=== PATIENT | female | born 1960 | race Caucasian/White ===

== ENCOUNTER → 2018-04-26 10:22 | Outpatient (CLI) | payer OTHER, SELFPAY ==
[2018-04-26 11:57] LABS: Absolute Neutrophil Count 4.7 X10^3/uL (2.0-7.7); Basophil# 0.04 X10^3/uL; Basophil% 0.6 % (0-1); Eosinophil# 0.18 X10^3/uL; Eosinophils% 2.5 % (0-5); Hematocrit 42.9 % (37-47); Lymphocyte % 22.5 % (19-41); Mean Corp Hgb Conc 32.6 g/gl (32-36); Mean Corpuscular Hgb 29.1 pg (27.0-32.0); Mean Corpuscular Volume 89.2 fL (81-99); Mean Platelet Vol. 8.9 fl (6.2-12.0); Monocyte# 0.59 X10^3/uL; Monocyte% 8.3 % (0-10); Neutrophil # 4.69 X10^3/uL (2.7-7.7); Platelet Count 314 K/mm3 (150-450); RBC Distribution Width CV 13.5 % (11.6-14.6); RBC Distribution Width SD 44.2 fl (35.1-43.9); Red Blood Count 4.81 M/mm3 (4.2-5.4); White Blood Count 7.1 K/mm3 (4.4-11.0)
[2018-04-26 11:59] LABS: POSITIVE COUNT NO; POSITIVE DIFFERENTIAL NO; POSITIVE MORPHOLOGY NO
[2018-04-26 12:21] LABS: AST(SGOT) 20 U/L (15-37); Alanine Aminotransfer ALT/SGPT 31 U/L (13-56); Anion Gap 5 (5-15); BUN 14 mg/dL (7-18); BUN/Creat Ratio 27.8 RATIO (10-20); Calcium,Total 8.8 mg/dL (8.5-10.1); Chloride 107 mmol/L (98-107); Cholesterol 150 mg/dL (200); EST Glomerular Filtration Rate 133 mL/min (>60); Est Glom Filt Rate - Afr Amer 161 mL/min (>60); Glucose 87 mg/dL (74-106); High Density Lipoprotein 40 mg/dL; Sodium Level 140 mmol/L (136-145); Triglycerides 105 mg/dL; Very Low Density Lipoprotein 21 mg/dL (5-40)
[2018-04-26 12:23] LABS: Vitamin D,25 Hydroxy 27.6 ng/mL (29.95-100.01)
[2018-04-26 12:24] LABS: Hemoglobin A1c 5.7 % (4.2-6.3)
== END ==
PROVIDERS: Family Provider Preventive Medicine Occupational Medicine
DX: E55.9 Vitamin D deficiency, unspecified (principal); J30.9 Allergic rhinitis, unspecified; G44.89 Other headache syndrome; Z13.220 Encounter for screening for lipoid disorders
CPT/HCPCS: 36415; 80048; 80061; 82306; 83036; 84450; 84460; 85025

== ENCOUNTER 2024-06-13 18:04 | Emergency (ER) | payer OTHER, SELFPAY ==
[2024-06-13 18:05] VITALS: BP 176/92; PULSE 81; RESP 18; TEMP 36.5; O2SAT 97; BMI 36.5
--- NOTE | 2024-06-13 18:20 | EKG12_ITS ---
Test Reason : CP Blood Pressure : */* mmHG Vent. Rate : 80 BPM Atrial Rate : 80 BPM P-R Int : 148 ms QRS Dur : 78 ms QT Int : 372 ms P-R-T Axes : 6 -6 30 degrees QTcB Int : 429 ms Normal sinus rhythm Normal ECG Confirmed by SHREYAS LOPEZ, HAMILTON ([id number]), field map editor DONAL RYDER ([id number]) on 06/14/2024 6:41:11 AM Referred By: UG Confirmed By: HAMILTON PRITCHETT MD
[2024-06-13 18:31] LABS: Absolute Lymphocyte Count 2.06 X10^3/uL (0.83-4.51); Absolute Neutrophil Count 5.9 X10^3/uL (2.0-7.7); Basophil# 0.08 X10^3/uL; Basophil% 0.9 % (0-1); Eosinophil# 0.33 X10^3/uL; Eosinophils% 3.6 % (0-5); Hematocrit 41.9 % (37-47); Hemoglobin 13.9 g/dL (12.0-15.0); Lymphocyte # 2.06 X10^3/ul (0.83-4.51); Lymphocyte % 22.4 % (19-41); Mean Corp Hgb Conc 33.2 g/dL (32-36); Mean Corpuscular Hgb 29.1 pg (27.0-32.0); Mean Corpuscular Volume 87.7 fL (81-99); Mean Platelet Vol. 8.6 fl (6.2-12.0); Monocyte# 0.76 X10^3/uL; Monocyte% 8.3 % (0-10); NRBC Flagged by Analyzer 0 % (0-5); Neutrophil # 5.91 X10^3/uL (2.7-7.7); Neutrophil % 64.4 % (47-70); Platelet Count 354 K/mm3 (150-450); RBC Distribution Width CV 13.4 % (11.6-14.6); RBC Distribution Width SD 43.6 fl (35.1-43.9); Red Blood Count 4.78 M/mm3 (4.2-5.4); White Blood Count 9.2 K/mm3 (4.4-11.0)
[2024-06-13 18:49] LABS: D-Dimer Quantitative (DVT/PE) 0.32 FEU/ug/m (0.27-0.49)
[2024-06-13 18:51] LABS: Anion Gap 5 (5-15); BUN 10 mg/dL (7-18); BUN/Creat Ratio 17.5 RATIO (10-20); Calcium,Total 9.1 mg/dL (8.5-10.1); Chloride 107 mmol/L (98-107); Creatinine, Serum 0.57 mg/dL (0.55-1.02); EST Glomerular Filtration Rate 112 mL/min (>60); Est Glom Filt Rate - Afr Amer 136 mL/min (>60); Estimated Creatinine Clearance 75.15 ml/min; Glucose 118 mg/dL (74-106); Potassium 3.6 mmol/L (3.5-5.1); Sodium Level 141 mmol/L (136-145); Troponin-I HS < 3 pg/mL (3.0-54.0)
[2024-06-13 19:04] VITALS: BP 175/90; PULSE 74; RESP 15
--- NOTE | 2024-06-13 19:30 | EDS_ITS ---
HPI History of Present Illness Chief Complaint: Chest Pain Detail of Chief Complaint: Chest pain that radiates through to her back Informant: patient Onset/Context/Timing Onset: Days (3 days ago) Activity at onset: sudden Timing: Continuous Quality: Positive for Aching Location: Right Parasternal (Radiates to the left side) and Left Parasternal Current Severity: Mild Maximum Severity: Moderate Worsened By: Nothing Relieved By: Nothing Associated Symptoms: Negative for Nausea, Vomiting, Diaphoresis, Dyspnea, Cough, Fever, Lightheadedness, Acid Reflux or Palpitations Narrative Narrative: Patient is a 64-year-old woman. She is not compliant with her antihypertensive meds. She is on amlodipine 5 mg. She took a dose this morning. Her prior dose was several months ago. She states the pain also went up to her jaw. She had no other associated symptoms or radiation. Her only risk factor is hypertension. There is no family history at a young age. She spoke 40 years ago. She denies history of VTE. Denies leg pain, swelling discoloration. She denies risk factors for VTE. Prior Similar Symptoms: No Recent Illness/Hospitalization: No CVD Risk Factors: Positive for Hypertension; Negative for Diabetes, Hypercholesterolemia, Family History 1' </=55 or Smoking PE Risk Factors: Negative for Recent Travel/Surgery, Recent Immobilization, Prior DVT or PE, Cancer or OCP + Smoking + >/=35 TAD Risk Factors: Positive for Hypertension and - (There is no family history of aortic dissection or aneurysm.); Negative for Marfan's Syndrome or Family History [facility] Medical History Hypertension Glaucoma Fingertip amputation Back pain Diarrhea Migraines Hay fever Hemorrhoids Home Medications ?Medication ?Instructions ?Recorded ?Last Taken ?Type fexofenadine-pseudoephedrine ER 1 tab PO QAM 08/29/17 Unknown History 180 mg-240 mg tablet,ext.release 24 hr (Kena-D 24 Hour) ibuprofen 100 mg tablet (Advil) PO 08/29/17 Unknown History amlodipine 5 mg tablet 5 mg PO DAILY 06/13/24 Unknown History Allergy/AdvReac Type Severity Reaction Status Date / Time Environmental Allergies: Allergy Other Verified 06/13/24 18:05 Uncoded levofloxacin (From [employer]) Allergy Other Verified 06/13/24 18:05 Family History Father Myocardial infarction Hypertension Mother Diabetes Hypertension Social History Smoking Status: Never smoker alcohol intake: never ROS ROS ED Constitutional Constitutional ED: Denies chills, fever(s), subjective, sweats or weight loss Eyes Eyes: Reports none ENT ENT ED: Denies rhinorrhea or sore throat Cardiovascular Cardiovascular: Reports as per HPI; Denies orthopnea or paroxysmal nocturnal dyspnea Respiratory/Chest Respiratory/Chest: Denies cough, dyspnea, dyspnea on exertion, orthopnea or paroxysmal nocturnal dyspnea Gastrointestinal Gastrointestinal: Denies abdominal pain, nausea or vomiting Musculoskeletal Musculoskeletal: Reports back pain; Denies arthralgias, myalgias or neck pain Integumentary Denies rash Neurologic Neurologic: Denies headache(s), paresthesias or weakness Hematologic/Lymphatic Hematologic/Lymphatic: Denies easy bleeding or easy bruising EXAM Physical Exam Const Vital Signs: 06/13/24 18:05 06/13/24 18:26 06/13/24 19:04 Temperature 97.7 F L Temperature Source Oral Pulse Rate 81 74 Respiratory Rate 18 15 Respiratory Effort Normal Short of Breath Blood Pressure 176/92 H 175/90 H Blood Pressure Mean 120 118 Pulse Ox 97 Oxygen Delivery Method Room Air 06/13/24 20:00 Temperature Temperature Source Pulse Rate 72 Respiratory Rate 12 Respiratory Effort Blood Pressure 132/74 H Blood Pressure Mean 93 Pulse Ox Oxygen Delivery Method Positive well nourished and well developed Constitutional Narrative: BMI is 36.5. General Appearance ED: well developed; Negative for pallor HEENT Reports TM's clear and moist mucous membranes normocephalic and atraumatic Tympanic Membrane ED: Yes TM's clear Eyes PERRL and EOMs intact bilaterally General Eye ED: Negative for pale conjunctiva or scleral icterus Neck no lymphadenopathy and no JVD Chest Wall inspection of chest normal and palpation of chest normal Resp clear to auscultation bilaterally Cardio regular rate, regular rhythm, S1 normal heart sound, S2 normal heart sound and no murmurs GI normal to inspection, nondistended, normoactive bowel sounds, soft to palpation, non-tender, non-distended and no masses; Negative for hepatosplenomegaly GI Narrative: There is no palpable pulsatile mass. There is no abdominal bruit. Back/Spine no CVA tenderness Extremity normal to inspection Extremity Narrative: DP and PT pulse are 2+ and symmetric. Radial pulses 2+ and symmetric. Neuro oriented x3 and no sensory deficits noted Sensorium / Orientation: awake and alert Motor Exam: strength 5/5 throughout Psych mental status grossly normal Skin no rashes or lesions noted and no wounds General Skin Exam: Negative for jaundice or pallor Heart Score History: Slightly/Non-Suspicious ECG: Normal Age: >/= 65 years Risk Factors: 1 or 2 Risk Factors Troponin: </= Normal Limit Score: 3 MDM MDM MDM Narrative Medical decision making narrative: Differential is cardiac versus noncardiac. Need to evaluate for cardiac ischemia, will obtain troponin since she has had pain continuous for 72 hours. Need to evaluate for aortic dissection. Will obtain D-dimer to screen. This may represent chest pain of unknown etiology. This also may represent esophagitis, esophageal spasm, reflux. She denies any change with change in position or food. Clinically there is no concern for spontaneous pneumothorax. Most recent blood pressure is 156/86. Patient was informed the cause of her pain is unknown. I informed her that my responsibility to rule out life- threatening concerns. This has been completed. Therefore will discharge to home. Patient's been encouraged to take her blood pressure medicine daily. Lab Data Attestation: I reviewed the patient's lab results. Lab results narrative: CBC is normal. Electrolyte pain is normal. Troponin is less than 3 with 72 hours of pain. D-dimer is normal at 0.32. Labs: Laboratory Results - last 24 hr 06/13/24 18:25 WBC 9.2 RBC 4.78 Hgb 13.9 Hct 41.9 MCV 87.7 MCH 29.1 MCHC 33.2 RDW Std Deviation 43.6 RDW Coeff of Ericka 13.4 Plt Count 354 MPV 8.6 Immature Gran % (Auto) 0.400 Neut % (Auto) 64.4 Lymph % (Auto) 22.4 Citrus % (Auto) 8.3 Eos % (Auto) 3.6 Baso % (Auto) 0.9 Absolute Neuts (auto) 5.9 Absolute Lymphs (auto) 2.06 Nucleated RBC % 0 D-Dimer Quant (PE/DVT) 0.32 Sodium 141 Potassium 3.6 Chloride 107 Carbon Dioxide 28.0 Anion Gap 5 BUN 10 Creatinine 0.57 Estim Creat Clear Calc 75.15 Est GFR (MDRD) Af Amer 136 Est GFR (MDRD) Non-Af 112 BUN/Creatinine Ratio 17.5 Glucose 118 H Calcium 9.1 Troponin I High Sens < 3 L Treatment and Re-Evaluation :: Patient was informed that the cause of her chest pain is uncertain. Life- threatening emergencies have been ruled out. Discharge Plan Triage Chief Complaint: Chest Pain ED Provider: Santino Dillon Dx/Rx/DC Orders Clinical Impression: Anterior chest wall pain, Accelerated essential hypertension, Noncompliance with medication regimen Instructions: ED Chest Pain, Noncardiac, ED Hypertension, Established Prescriptions: No Action ibuprofen [Advil] 100 mg tablet PO fexofenadine-pseudoephedrine [Kena-D 24 Hour] 180-240 mg tablet extended release 24 hr 1 tab PO QAM amlodipine 5 mg tablet 5 mg PO DAILY Primary Care Provider: Kayla العراقي Referrals: Kayla العراقي DO [Primary Care Provider] - 3-5 Days Print Language: Bulgarian Disposition Disposition: Home, Self Care
[2024-06-13 20:00] VITALS: BP 132/74; PULSE 72; RESP 12
[2024-06-13 20:46] VITALS: BP 161/91; PULSE 70; RESP 12; TEMP 36.9; O2SAT 100
== END 2024-06-13 20:47 | disposition home or self-care (01) ==
PROVIDERS: Emergency Provider Emergency Medicine; PCP Family Medicine; Visit Provider Emergency Medicine
DX: R07.89 Other chest pain (principal); I10 Essential (primary) hypertension; Z91.148 Patient's other noncompliance with medication regimen for other reason; Z79.899 Other long term (current) drug therapy
CPT/HCPCS: 80048; 84484; 85025; 85379; 93005; 99284; A4216

== ENCOUNTER 2025-03-30 21:44 | Emergency (ER) | payer OTHER, SELFPAY ==
[2025-03-30] VITALS (12 sets, daily range): BP systolic 128–177; BP diastolic 73–93; PULSE 59–72; RESP 8–19; TEMP 36.9; O2SAT 95–100; BMI 34.6
--- NOTE | 2025-03-30 22:03 | EKG12_ITS ---
Test Reason : CP Blood Pressure : */* mmHG Vent. Rate : 70 BPM Atrial Rate : 70 BPM P-R Int : 144 ms QRS Dur : 76 ms QT Int : 390 ms P-R-T Axes : 4 -8 22 degrees QTcB Int : 421 ms Normal sinus rhythm Normal ECG Confirmed by BROOKE SOTO ([id number]), editor city DONAL RYDER ([id number]) on 04/04/2025 6:26:05 AM Referred By: AR Confirmed By: BROOKE SOTO
--- OUTSIDE RECORDS SUMMARY | 2025-03-30 22:09 | XMS RPT_ITS | CCD ---
Author Organization [facility] Inform ion Partnership [facility] Care Team Providers Care Still Operator Brandy Name Role Phone VINCENZO CORTESNIFER Unavailable Unava ilable KRUSEMARK-MILLIN DO, KAYLA Primary Care Physi katherine KRUSEMARK-MILLIN DO, KAYLA Attending Un available KRUSEMARK-MILLIN DO, KAYLA Primary Care Un available KRUSEMARK-MILLIN DO, KAYLA Attending Un available KRUSEMARK-MILLIN DO, KAYLA Primary Care Un available KRUSEMARK-MILLIN DO, KAYLA Attending Un available KRUSEMARK-MILLIN DO, KAYLA Primary Care Un available Krusemark-Millin, Kayla Primary Care Unava ilable Dillon, Santino Attending Unavailable KRUSEMARK-MILLIN DO, KAYLA Attending Un available KRUSEMARK-MILLIN DO, KAYLA Primary Care Un available Allergies Allergy Classification Reported Allergen(s) Allergy Type Date of Onset Reaction(s) Facility (8 sources) levoFLOXacin; Translations: [LEVOFLOXACIN] Drug Allergy 7 AOF, red eyes [facility] Repository (1 source) Seasonal allergy; Translations: [SEASONAL ALLERGIES] Propensity to adverse reactions (disorder) 7 AOF [facility] Repository (1 source) Environmental Allergies: Uncoded; Translations: [Environmental Allergies: Uncoded] Propensity to adverse reactions (disorder) 4 [facility] Repository Medications Current Medications Medication Drug Class(es) Dates Sig (Normalized) Sig (Original) Gaviscon (5 sources) Start: 01-20-2019 Gaviscon Chewed, pchs, 0 Refill(s) Start Date: 01/20/19 Status: Ordered amLODIPine 5 mg oral tablet (5 sources) Dihydropyridine Calcium Channel Armaan Start: 04-30-2023 End: 04-24-2024 amLODIPine 5 mg oral tablet Dose : 5 mg = 1 tab(s), Oral, qDay, # 90 tab(s), 3 Refill(s), [id number] 162, cm, 04/30/23 10:45:00 EDT, Height, kg, 04/30/23 10:45:00 EDT, Dosing Weight Start Date: 04/30/23 Stop Date: 04/24/24 Status: Ordered Start: 04-22-2022 amLODIPine 5 m g oral tablet See Instructions, TAKE 2 TABLET BY MOUTH EVERY DAY--03-12-23, # 30 tab(s), 11 Refill(s), [id number] 160, cm, 04/22/22 14:08:00 EDT, Height, kg, 04/22/22 14:08:00 EDT, Dosing Weight Start Date: 04/22/22 Status: Ordered Start: 04-22-2022 take 1 tablet by nan th once daily amLODIPine 5 mg oral tablet See Instructions, TAKE 1 TABLET BY MOUTH EVERY DAY, # 30 tab(s), 11 Refill(s), [id number] 160, cm, 04/22/22 14:08:00 EDT, Height, kg, 04/22/22 14:08:00 EDT, Dosing Weight Start Date: 04/22/22 Status: Ordered Start: 03-09-2021 take 1 tablet by nan th once daily amLODIPine 5 mg oral tablet See Instructions, TAKE 1 TABLET BY MOUTH EVERY DAY, # 30 tab(s), 11 Refill(s), Pharmacy: [facility] [id number], 160, cm, 02/11/21 14:44:00 EDT, Height, kg, 02/11/21 14:44:00 EDT, Dosing Weight Start Date: 03/09/21 Status: Ordered Calcium and Magnesium oral tablet (6 sources) Start: 01-20-2019 take 1 tablet by mouth every week Calcium and Magnesium oral tablet Dose = 1 tab(s), Oral, 2X/week, 0 Refill(s) Start Date: 01/20/19 Status: Ordered Centrum Silver oral tablet (3 sources) Start: 01-20-2019 take 1 tablet by mouth every week Centrum Silver oral tablet Dose = 1 tab(s), Oral, 2X/week, # 30 tab(s), 0 Refill(s) Start Date: 01/20/19 Status: Ordered Cranberry preparation (6 sources) Non-Standardized Food Allergenic Extract, Non-Standardized Plant Allergenic Extract Start: 01-20-2019 take 1 capsule by mouth once daily cranberry oral capsule Dose = 1 cap(s), Oral, Daily, 0 Refill(s) Start Date: 01/20/19 Status: Ordered 24 hr fexofenadine hydrochloride 180 mg / pseudoephedrine hydrochloride 240 mg extended release oral tablet (3 sources) alpha-Adrenergic Agonist, Histamine-1 Receptor Antagonist Start: 01-20-2019 take 1 tablet by mouth once daily Kena-D 24 Hour Allergy & Congestion 180 mg-240 mg oral tablet, extended release Dose = 1 tab(s), Oral, Daily, 0 Refill(s) Start Date: 01/20/19 Status: Ordered ibuprofen 200 mg oral tablet (6 sources) Nonsteroidal Anti-inflammatory Drug Start: 01-20-2019 Advil 200 mg oral tablet Dose : 200 mg = 1 tab(s), Oral, q4h, PRN as needed for pain, 0 Refill(s) Start Date: 01/20/19 Status: Ordered latanoprost 0.05 mg/ml ophthalmic solution (3 sources) Prostaglandin Analog Start: 03-12-2023 take 1 dose into the eye(s) once daily at bedtime latanoprost 0.005% ophthalmic solution Dose = 1 drop(s), Eyes, both, qHS, # 2.5 mL, 0 Refill(s) Start Date: 03/12/23 Status: Ordered losartan potassium 50 mg oral tablet (1 source) Angiotensin 2 Receptor Armaan Start: 07-13-2024 End: 07-08-2025 losartan 50 mg oral tablet Dose : 50 mg = 1 tab(s), Oral, qDay, # 90 tab(s), 3 Refill(s), Pharmacy: [facility]/pharmacy #[id number], 160, cm, 07/05/24 13:01:00 EST, Height, kg, 07/05/24 13:01:00 EST, Dosing Weight Start Date: 07/13/24 Stop Date: 07/08/25 Status: Ordered Completed/Discontinued Medications Medication Drug Class(es) Dates Sig (Normalized) Sig (Original) meloxicam 15 mg oral tablet (3 sources) Nonsteroidal Anti-inflammatory Drug Start: 06-13-2019 End: 06-07-2020 meloxicam 15 mg oral tablet Dose : 15 mg = 1 tab(s), Oral, qDay, # 30 tab(s), 11 Refill(s) Start Date: 06/13/19 Stop Date: 06/07/20 Status: Ordered Problems Problem Classification Problem Date Documented Date Episodic/Chronic Blindness and vision defects (6 sources) Visual disturbance 01-13-2022 Episodic Diabetes mellitus without complication (9 sources) Abnormal glucose level; Translations: [Prediabetes] 06-13-2019 Episodic E Codes: Fall (6 sources) Fall 01-08-2021 Essential hypertension (10 sources) Hypertensive disorder 02-11-2021 Chronic Genitourinary symptoms and ill-defined conditions (6 sources) Female stress incontinence 06-13-2019 Chronic Genitourinary symptoms and ill-defined conditions (6 sources) Dysuria 02-11-2021 Episodic Glaucoma (3 sources) Glaucoma suspect 11-10-2022 Chronic Headache; including migraine (6 sources) Headache 10-03-2021 Episodic Neoplasms of unspecified nature or uncertain behavior (5 sources) Neoplasm of skin 06-17-2022 Episodic Nonmalignant breast conditions (6 sources) Pain of breast 12-20-2020 Episodic Nonspecific chest pain (13 sources) Chest pain; Translations: [Chest wall pain] Onset: 07-12-2024 02-11-2021 Episodic Nutritional deficiencies (6 sources) Vitamin D deficiency 06-13-2019 Chronic Other and unspecified benign neoplasm (5 sources) Polyp of colon 04-22-2022 Episodic Other bone disease and musculoskeletal deformities (6 sources) Cervical somatic dysfunction 08-21-2020 Episodic Other bone disease and musculoskeletal deformities (6 sources) Somatic dysfunction of lumbar region 06-14-2020 Episodic Other bone disease and musculoskeletal deformities (6 sources) Somatic dysfunction of pelvic region 06-14-2020 Episodic Other bone disease and musculoskeletal deformities (6 sources) Somatic dysfunction of rib 06-14-2020 Episodic Other bone disease and musculoskeletal deformities (6 sources) Somatic dysfunction of sacral region 06-14-2020 Episodic Other bone disease and musculoskeletal deformities (6 sources) Somatic dysfunction of thoracic region 06-14-2020 Episodic Other bone disease and musculoskeletal deformities (8 sources) Somatic dysfunction of upper limb 12-20-2020 Episodic Other circulatory disease (3 sources) Prehypertension 01-08-2021 Episodic Other circulatory disease (1 source) H/O: heart disorder 06-20-2024 Episodic Other connective tissue disease (6 sources) Muscle pain 01-20-2019 Episodic Other connective tissue disease (2 sources) Pain in right lower limb 06-09-2023 Episodic Other eye disorders (5 sources) 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 Other nervous system disorders (6 sources) Facial paresthesia 10-03-2021 Episodic Other nervous system disorders (3 sources) Shuffling gait 03-12-2023 Episodic Other nervous system disorders (3 sources) Tremor 03-12-2023 Episodic Other non-traumatic joint disorders (6 sources) Hip pain 06-14-2020 Episodic Other non-traumatic joint disorders (6 sources) Joint pain 01-20-2019 Episodic Other nutritional; endocrine; and metabolic disorders (6 sources) Body mass index 30+ - obesity 02-11-2021 Chronic Other nutritional; endocrine; and metabolic disorders (6 sources) Obesity 02-11-2021 Chronic Other skin disorders (4 sources) Skin tag 06-14-2020 Episodic Other upper respiratory disease (6 sources) Allergic rhinitis 02-11-2021 Chronic Other upper respiratory infections (3 sources) Acute sinusitis 10-03-2021 Episodic Otitis media and related conditions (6 sources) Dysfunction of eustachian tube 08-21-2020 Episodic Residual codes; unclassified (6 sources) FH: Rheumatoid arthritis 01-20-2019 Episodic Residual codes; unclassified (6 sources) Insomnia 02-11-2021 Episodic Spondylosis; intervertebral disc disorders; other back problems (14 sources) Low back pain; Translations: [Neck pain] 07-20-2020 Episodic Unclassified (1 source) Unknown / UNK(Unknown) Onset: 05-06-2018 Unclassified (6 sources) Patient encounter status 06-13-2019 Urinary tract infections (4 sources) Urinary tract infectious disease 12-20-2020 Episodic Results Test Name Value Interpretation Reference Range Facility MA MAMMOGRAM SCREENING BILAT ERAL W/TOMOon 07-19-2024 MA MAMMOGRAM SCREENING BILATERAL W/CHARLIE ORIGINAL FROM: [facility] FREDERICK [address] [place] [id number] PROCEDURE FOR: MAHAMED RADHA [address] [place] [address] Home: PID#: [id number] Exam#: [id number] : 1960 Age: 64 TO: KAYLA العراقي [address], [place] [address] Fax: NO FAX EXAMINATION: SCREENING DIGITAL BILATERAL MAMMOGRAM WITH TOMOSYNTHESIS, 07/14/2024 2:32 pm TECHNIQUE: Screening mammography of the bilateral breasts was performed with tomosynthesis. 2D standard and 3D tomosynthesis combination imaging performed through both breasts in the MLO and CC projection. Computer aided detection was utilized in the interpretation of this exam. COMPARISON: 07/03/2022 HISTORY: Breast cancer screening. FINDINGS: BREAST DENSITY: There are scattered areas of fibroglandular density. There is a benign calcification in the left breast. There are no significant masses or calcifications. IMPRESSION: No mammographic evidence of malignancy. Continued screening with annual mammograms is recommended. Tyrer Cuzick risk calculations, generated with the history provided, report this patient's 10 year risk and lifetime risk for developing breast cancer at 1.8% and 3.7%, respectively. Based on this assessment tool, if the patient's calculated lifetime risk is below 20%, then the patient is considered at average risk for developing breast cancer. If the patient's calculated lifetime risk is at or above 20%, then the patient is considered high risk for developing breast cancer and may be a candidate for supplemental breast MRI screening in addition to annual mammographic screening per the [employer]. BIRADS: BI-RADS: 2: Benign RECALL: 1 year screening RECALL TYPE: mammo LETTER SENT: Normal BI-RADS 1 and 2 Interpreted by: Gustavo Hull MD Preliminary Report By: Gustavo Hull MD Electronically signed By Gustavo Hull MD Dictated Date: 07/19/2024 8:07:24 PM Prelim Date: 07/19/2024 8:11:59 PM Sign Date: 07/19/2024 8:11:59 PM Ordering Provider: KAYLA العراقي Cabin Outfitter: CLAUDIA NICHOLAS RT(R)(M)(CT) letter sent: Normal BI-RADS 1 and 2 Mammogram BI-RADS: 2 Benign Normal [facility] 12 Lead EKGon 06-13-2024 12 Lead EKG [facility] [address] [place] [address] 12 Lead EKG 06/13/24 1811 MR#: [id number] Acct: [id number] Name: MAHAMED GARCIA Rep #: [id number] : 1960 64 From: Juan M Simpson MD Attending Dr: Status: DEP ER Ordering Dr: Santino Dillon MD Date: 06/13/24 Location: ED Sex: F C Admitted: Test Reason : CP Blood Pressure : */* mmHG Vent. Rate : 80 BPM Atrial Rate : 80 BPM P-R Int : 148 ms QRS Dur : 78 ms QT Int : 372 ms P-R-T Axes : 6 -6 30 degrees QTcB Int : 429 ms Normal sinus rhythm Normal ECG Confirmed by SHREYAS LOPEZ, JUAN M ([id number]), editor house organ DONAL RYDER ([id number]) on 06/14/2024 6:41:11 AM Referred By: UG Confirmed By: JUAN M SIMPSON MD 06/14/24 0641 Date Juan M Simpson MD CC: Dr. Kayla العراقي; Dr. Santino Dillon MD Signed Normal [facility] Basic Metabolic Profile (BMP )on 06-13-2024 BUN/CRE 17.5 RATIO Normal 10-20 [facility] Comment on above: Order Comment: 'TROP ' Serial specimen #1, #2 or #3: 1 Performed By: #### L 100.0100, L501.4020, L300.8000, L500.2500 #### [facility] Laboratory [address] [place], [address] CA,Total 9.1 mg/dL Normal 8.5-10.1 [facility] Comment on above: Order Comment: 'TROP ' Serial specimen #1, #2 or #3: 1 Performed By: #### L 100.0100, L501.4020, L300.8000, L500.2500 #### [facility] [address] [place], [address] Chloride [Moles/Vol] 107 mmol/L Normal 98-107 [facility] Comment on above: Order Comment: 'TROP ' Serial specimen #1, #2 or #3: 1 Performed By: #### L 100.0100, L501.4020, L300.8000, L500.2500 #### [facility] [address] [place], [address] CO2 [Moles/Vol] 28.0 mmol/L Normal 21.0-32.0 [facility] Comment on above: Order Comment: 'TROP ' Serial specimen #1, #2 or #3: 1 Performed By: #### L 100.0100, L501.4020, L300.8000, L500.2500 #### [facility] [address] [place], [address] Creatinine [Mass/Vol] 0.57 mg/dL Normal 0.55-1.02 [facility] Comment on above: Order Comment: 'TROP ' Serial specimen #1, #2 or #3: 1 Result Comment: The validity of the calculated GFR GFRAA in patients over 70 years has not been determined. Clinical correlation is essential. Performed By: #### L 100.0100, L501.4020, L300.8000, L500.2500 #### [facility] [address] [place], [address] ECRCL 75.15 ml/min Normal [facility] Comment on above: Order Comment: 'TROP ' Serial specimen #1, #2 or #3: 1 Performed By: #### L 100.0100, L501.4020, L300.8000, L500.2500 #### [facility] [address] [place], [address] EST GFR - AA 136 mL/min Normal >60 [facility] Comment on above: Order Comment: 'TROP ' Serial specimen #1, #2 or #3: 1 Result Comment: Afri can [place] GFR Calc Performed By: #### L 100.0100, L501.4020, L300.8000, L500.2500 #### [facility] [address] [place], [address] GAP 5 Normal 5-15 [facility] Comment on above: Order Comment: 'TROP ' Serial specimen #1, #2 or #3: 1 Performed By: #### L 100.0100, L501.4020, L300.8000, L500.2500 #### [facility] [address] [place], [address] GFR/1.73 sq M.predicted among non-blacks MDRD (S/P/Bld) [Vol rate/Area] 112 mL/min/{1.73_m2} Normal >60 [facility] Comment on above: Order Comment: 'TROP ' Serial specimen #1, #2 or #3: 1 Result Comment: Non- GFR Calc Performed By: #### L 100.0100, L501.4020, L300.8000, L500.2500 #### [facility] [address] [place], [address] Glucose [Mass/Vol] 118 mg/dL High 74-106 [facility] Comment on above: Order Comment: 'TROP ' Serial specimen #1, #2 or #3: 1 Result Comment: Fast ing Glucose result from 100 to 125 mg/dL suggests IMPAIRED HOMEOSTASIS per A.D.A. criteria. Performed By: #### L 100.0100, L501.4020, L300.8000, L500.2500 #### [facility] [address] [place], [address] Potassium [Moles/Vol] 3.6 mmol/L Normal 3.5-5.1 [facility] Comment on above: Order Comment: 'TROP ' Serial specimen #1, #2 or #3: 1 Performed By: #### L 100.0100, L501.4020, L300.8000, L500.2500 #### [facility] [address] [place], [address] Sodium [Moles/Vol] 141 mmol/L Normal 136-145 [facility] Comment on above: Order Comment: 'TROP ' Serial specimen #1, #2 or #3: 1 Performed By: #### L 100.0100, L501.4020, L300.8000, L500.2500 #### [facility] [address] [place], [address] Urea nitrogen [Mass/Vol] 10 mg/dL Normal 7-18 [facility] Comment on above: Order Comment: 'TROP ' Serial specimen #1, #2 or #3: 1 Performed By: #### L 100.0100, L501.4020, L300.8000, L500.2500 #### [facility] [address] [place], [address] CBC W/Diff, Automatedon 11- Absolute Lymph 2.06 X10 3/uL Normal 0.83-4.51 [facility] Comment on above: Performed By: #### L 100.0100, L501.4020, L300.8000, L500.2500 #### [facility] [address] [place], [address] Absolute Neut 5.9 X10 3/uL Normal 2.0-7.7 [facility] Comment on above: Performed By: #### L 100.0100, L501.4020, L300.8000, L500.2500 #### [facility] [address] [place], [address] Basophils/100 WBC (Bld) 0.9 % Normal 0-1 [facility] Comment on above: Performed By: #### L 100.0100, L501.4020, L300.8000, L500.2500 #### [facility] [address] [place], [address] Eosinophils/100 WBC (Bld) 3.6 % Normal 0-5 [facility] Comment on above: Performed By: #### L 100.0100, L501.4020, L300.8000, L500.2500 #### [facility] [address] [place], [address] Erythrocyte distribution width (RBC) [Ratio] 13.4 % Normal 11.6-14.6 [facility] Comment on above: Performed By: #### L 100.0100, L501.4020, L300.8000, L500.2500 #### [facility] [address] [place], [address] Hematocrit (Bld) [Volume fraction] 41.9 % Normal 37-47 [facility] Comment on above: Performed By: #### L 100.0100, L501.4020, L300.8000, L500.2500 #### [facility] [address] [place], [address] Hemoglobin (Bld) [Mass/Vol] 13.9 g/dL Normal 12.0-15.0 [facility] Comment on above: Performed By: #### L 100.0100, L501.4020, L300.8000, L500.2500 #### [facility] [address] [place], [address] IG% 0.400 Normal 0.0-0.9 [facility] Comment on above: Result Comment: IG% - Immature Granulocytes (promyelocytes, myelocytes and metamyelocytes) > 1% indicates that a LEFT SHIFT is Present. Performed By: #### L 100.0100, L501.4020, L300.8000, L500.2500 #### [facility] [address] [place], [address] Lymphocytes/100 WBC (Bld) 22.4 % Normal 19-41 [facility] Comment on above: Performed By: #### L 100.0100, L501.4020, L300.8000, L500.2500 #### [facility] [address] [place], [address] MCH (RBC) [Entitic mass] 29.1 pg Normal 27.0-32.0 [facility] Comment on above: Performed By: #### L 100.0100, L501.4020, L300.8000, L500.2500 #### [facility] [address] [place], [address] MCHC (RBC) [Mass/Vol] 33.2 g/dL Normal 32-36 [facility] Comment on above: Performed By: #### L 100.0100, L501.4020, L300.8000, L500.2500 #### [facility] [address] [place], [address] MCV (RBC) [Entitic vol] 87.7 fL Normal 81-99 [facility] Comment on above: Performed By: #### L 100.0100, L501.4020, L300.8000, L500.2500 #### [facility] [address] [place], [address] Monocytes/100 WBC (Bld) 8.3 % Normal 0-10 [facility] Comment on above: Performed By: #### L 100.0100, L501.4020, L300.8000, L500.2500 #### [facility] [address] [place], [address] Neutrophils/100 WBC (Bld) 64.4 % Normal 47-70 [facility] Comment on above: Performed By: #### L 100.0100, L501.4020, L300.8000, L500.2500 #### [facility] [address] [place], [address] Nucleated RBC (Bld) [#/Vol] 0 10*3/uL Normal 0-5 [facility] Comment on above: Performed By: #### L 100.0100, L501.4020, L300.8000, L500.2500 #### [facility] [address] [place], [address] Platelet mean volume (Bld) [Entitic vol] 8.6 fL Normal 6.2-12.0 [facility] Comment on above: Performed By: #### L 100.0100, L501.4020, L300.8000, L500.2500 #### [facility] [address] [place], [address] Platelets (Bld) [#/Vol] 354 10*3/uL Normal 150-450 [facility] Comment on above: Performed By: #### L 100.0100, L501.4020, L300.8000, L500.2500 #### [facility] [address] [place], [address] RBC (Bld) [#/Vol] 4.78 10*6/uL Normal 4.2-5.4 [facility] Comment on above: Performed By: #### L 100.0100, L501.4020, L300.8000, L500.2500 #### [facility] [address] [place], [address] RDW SD 43.6 fl Normal 35.1-43.9 [facility] Comment on above: Performed By: #### L 100.0100, L501.4020, L300.8000, L500.2500 #### [facility] [address] [place], [address] WBC (Bld) [#/Vol] 9.2 10*3/uL Normal 4.4-11.0 [facility] Comment on above: Performed By: #### L 100.0100, L501.4020, L300.8000, L500.2500 #### [facility] [address] [place], [address] D-Dimer Quantitative (DVT/PE )on 06-13-2024 D-DIMER QUANT 0.32 FEU/ug/m Normal 0.27-0.49 [facility] Comment on above: Result Comment: NORM AL D-Dimer level (<0.50) indicates no DVT or PE. Performed By: #### L 100.0100, L501.4020, L300.8000, L500.2500 #### [facility] [address] [place], [address] Emergency Department Summary on 06-13-2024 Emergency Department Summary [facility] Medical Records Department [address] [place] [address] Emergency Department Summary 06/13/24 MR#: [id number] Acct: [id number] Name: MAHAMED GARCIA Rep #: [id number] : 1960 64 From: Santino Dillon MD PCP: Dr. Kayla العراقي Status:REG ER Location: ED HPI History of Present Illness Chief Complaint: Chest Pain Detail of Chief Complaint: Chest pain that radiates through to her back Informant: patient Onset/Context/Timing Onset: Days (3 days ago) Activity at onset: sudden Timing: Continuous Quality: Positive for Aching Location: Right Parasternal (Radiates to the left side) and Left Parasternal Current Severity: Mild Maximum Severity: Moderate Worsened By: Nothing Relieved By: Nothing Associated Symptoms: Negative for Nausea, Vomiting, Diaphoresis, Dyspnea, Cough, Fever, Lightheadedness, Acid Reflux or Palpitations Narrative Narrative: Patient is a 64-year-old woman. She is not compliant with her antihypertensive meds. She is on amlodipine 5 mg. She took a dose this morning. Her prior dose was several months ago. She states the pain also went up to her jaw. She had no other associated symptoms or radiation. Her only risk factor is hypertension. There is no family history at a young age. She spoke 40 years ago. She denies history of VTE. Denies leg pain, swelling discoloration. She denies risk factors for VTE. Prior Similar Symptoms: No Recent Illness/Hospitalization: No CVD Risk Factors: Positive for Hypertension; Negative for Diabetes, Hypercholesterolemia, Family History 1' PE Risk Factors: Negative for Recent Travel/Surgery, Recent Immobilization, Prior DVT or PE, Cancer or OCP + Smoking + >/=35 TAD Risk Factors: Positive for Hypertension and - (There is no family history of aortic dissection or aneurysm.); Negative for Marfan's Syndrome or Family History PFSH PFSH Medical History Hypertension Glaucoma Fingertip amputation Back pain Diarrhea Migraines Hay fever Hemorrhoids Home Medications ???Medication ???Instructions ???Recorded ???Last Taken ???Type fexofenadine-pseudoephed rine ER 1 tab PO QAM 08/29/17 Unknown History 180 mg-240 mg tablet,ext.release 24 hr (Kena-D 24 Hour) ibuprofen 100 mg tablet (Advil) PO 08/29/17 Unknown History amlodipine 5 mg tablet 5 mg PO DAILY 06/13/24 Unknown History Allergy/AdvReac Type Severity Reaction Status Date / Time Environmental Allergies: Allergy Other Verified 06/13/24 18:05 Uncoded levofloxacin (From Levaquin) Allergy Other Verified 06/13/24 18:05 Family History Father Myocardial infarction Hypertension Mother Diabetes Hypertension Social History Smoking Status: Never smoker alcohol intake: never ROS ROS ED Constitutional Constitutional ED: Denies chills, fever(s), subjective, sweats or weight loss Eyes Eyes: Reports none ENT ENT ED: Denies rhinorrhea or sore throat Cardiovascular Cardiovascular: Reports as per HPI; Denies orthopnea or paroxysmal nocturnal dyspnea Respiratory/Chest Respiratory/Chest: Denies cough, dyspnea, dyspnea on exertion, orthopnea or paroxysmal nocturnal dyspnea Gastrointestinal Gastrointestinal: Denies abdominal pain, nausea or vomiting Musculoskeletal Musculoskeletal: Reports back pain; Denies arthralgias, myalgias or neck pain Integumentary Denies rash Neurologic Neurologic: Denies headache(s), paresthesias or weakness Hematologic/Lymphatic Hematologic/Lymphatic: Denies easy bleeding or easy bruising EXAM Physical Exam Const Vital Signs: 06/13/24 18:05 06/13/24 18:26 06/13/24 19:04 Temperature 97.7 F L Temperature Source Oral Pulse Rate 81 74 Respiratory Rate 18 15 Respiratory Effort Normal Short of Breath Blood Pressure 176/92 H 175/90 H Blood Pressure Mean 120 118 Pulse Ox 97 Oxygen Delivery Method Room Air 06/13/24 20:00 Temperature Temperature Source Pulse Rate 72 Respiratory Rate 12 Respiratory Effort Blood Pressure 132/74 H Blood Pressure Mean 93 Pulse Ox Oxygen Delivery Method Positive well nourished and well developed Constitutional Narrative: BMI is 36.5. General Appearance ED: well developed; Negative for pallor HEENT Reports TM's clear and moist mucous membranes normocephalic and atraumatic Tympanic Membrane ED: Yes TM's clear Eyes PERRL and EOMs intact bilaterally General Eye ED: Negative for pale conjunctiva or scleral icterus Neck no lymphadenopathy and no JVD Chest Wall inspection of chest normal and palpation of chest normal Resp clear to auscultation bilaterally Cardio regular rate, regular rhythm, S1 (more content not included)... Normal [facility] L501.4020on 06-13-2024 TROPONIN-I HS < 3 Low 3.0-54.0 [facility] Comment on above: Order Comment: 'TROP ' Serial specimen #1, #2 or #3: 1 Result Comment: Margie jones Note: New Test Units and Gender Specific Reference Ranges. For more information see Policy Stat Procedure [place] High Sensitivity Troponin (TNIH) and attachments. Performed By: #### L 100.0100, L501.4020, L300.8000, L500.2500 #### [facility] [address] [place], [address] CT SINUSon 07-10-2022 CT SINUS ORIGINAL EXAMINATION: CT Sinuses without intravenous contrast TECHNIQUE: Axial noncontrast CT of the head and paranasal sinuses was performed. Coronal and sagittal reconstructions. DICOM images are available. One or more of the following dose reduction techniques were used: automated exposure control, adjustment of the mA and/or kV according to patient size, or use of iterative reconstruction. COMPARISON: None. HISTORY: ORDERING SYSTEM PROVIDED HISTORY: Reason for Exam: CHRONIC SINUSITIS, RIGHT WORSE THAN LEFT WITH PROGRESSION OVER THE LAST 1-2 MONTHS. FINDINGS: Maxillary sinuses: Small left maxillary sinus retention cyst. Sphenoid sinuses: Clear. Ethmoid sinuses: 2 mm osteoma within the mid left ethmoid sinus (axial image 33 series 2). The ethmoid sinuses are otherwise clear. Frontal sinuses: Clear. Frontoethmoidal recesses: Clear. Sphenoethmoidal recesses: Clear. Ostiomeatal units: Clear. Fluid levels: None. Nasal septum: Mild leftward deviation. Nasopharynx: 5 mm midline cyst (axial image 22 series 3) reflecting either a Thornwaldt or mucous retention cyst. Nasal cavity: Unremarkable. Mastoid air cells: Clear. Orbits: Unremarkable. Visualized brain: No acute pathology. Soft tissues: Unremarkable. Bones: Unremarkable. Additional comment: Small bilateral andreia bullosa of the middle nasal turbinates. IMPRESSION: 1. No acute sinusitis. 2. Small left maxillary sinus retention cyst. 3. Subcentimeter cyst of the midline nasopharynx. Interpreted by: Moe Marinelli MD Preliminary Report By: Moe Marinelli MD Electronically signed By Moe Marinelli MD Dictated Date: 07/10/2022 11:33:46 AM Prelim Date: 07/10/2022 11:49:22 AM Sign Date: 07/10/2022 11:49:22 AM Ordering Provider: KAYLA العراقي [facility] ([place] [place] MAMMOGRAM SCREENING BILAT ERAL W/TOMOon 07-03-2022 MA MAMMOGRAM SCREENING BILATERAL W/CHARLIE ORIGINAL FROM: [facility] [address] [place] [address] PROCEDURE FOR: MAHAMED GARCIA [address] [place] [address] Home: PID#: [id number] Exam#: [id number] : 1960 Age: 62 TO: KAYLA العراقي [address], [place] [address] Fax: NO FAX EXAMINATION: SCREENING DIGITAL BILATERAL MAMMOGRAM WITH TOMOSYNTHESIS, 07/03/2022 10:59 am TECHNIQUE: Screening mammography of the bilateral breasts was performed with tomosynthesis. 2D standard and 3D tomosynthesis combination imaging performed through both breasts in the MLO and CC projection. Computer aided detection was utilized in the interpretation of this exam. COMPARISON: 10/11/2008 HISTORY: Breast cancer screening. FINDINGS: BREAST DENSITY: Scattered fibroglandular tissue There are benign appearing densities in both breasts. There are no significant masses or calcifications. IMPRESSION: No mammographic evidence of malignancy. Continued screening with annual mammograms is recommended. BIRADS: MAMMOGRAM BI-RADS: 2: Benign finding RECALL: 1 year screening RECALL TYPE: mammo LETTER SENT: Normal BI-RADS 1 and 2 Interpreted by: Gustavo Hull MD Preliminary Report By: Gustavo Hull MD Electronically signed By Gustavo Hull MD Dictated Date: 07/22/2022 8:16:47 PM Prelim Date: 07/22/2022 8:21:49 PM Sign Date: 07/22/2022 8:21:49 PM Ordering Provider: KAYLA العراقي Cabin Outfitter: CLAUDIA PADILLA RT(R) (M) letter sent: Normal BI-RADS 1 and 2 Mammogram BI-RADS: 2 Benign Normal [facility] ([place]) CT BRAIN WO CONTRASTon 05-06 CT BRAIN WO CONTRAST * * *Final Report* * *DATE OF EXAM: May 06 2018 1:46PM [facility] 0267 - CT BRAIN WO CONTRAST / REASON: sinus and brain * * * * Physician Interpretation * * * * EXAMINATION: CT BRAIN WO CONTRAST, CT STEREO SINUSCLINICAL HISTORY: Right-sided facial numbness and headaches abnormal gait.TECHNIQUE: Serial axial images without IV contrast were obtained from the vertex to the foramen magnum. Additionally, Spiral high resolution unenhanced images were obtained through the paranasal sinuses with sagittal and coronal reconstructions and bone and soft tissue algorithms.MQ: CTBWO_3CT Dose-Length Product (DLP): 795 mGy*cmCT Dose Reduction Employed: No dose reduction techniques were requiredCOMPARISON: None.BRAIN RESULT:Post-operative change: None.Acute change: No evidence of an acute infarct or other acute parenchymal process.Hemorrhage: No evidence of acute intracranial hemorrhage.Mass Lesion / Mass Effect: There is no evidence of an intracranial mass or extraaxial fluid collection. No significant mass effect.Chronic change: None apparent.Parenchyma: There is no significant volume loss. The brain parenchyma is otherwise within normal limits for age.Ventricles: The ventricles are within normal limits of size and configuration for age.SINUS RESULT:Post-Surgical Findings: NoneSinus Chambers: Small mucosal retention cyst in the left maxillary sinus.Nasal Cavities: Visualized nasal cavities are patent. Soft tissue prominence in the area between the longus colli muscles is likely a Thornwaldt cyst.Developmental Anomalies: NoneOstiomeatal Complex: Patent within the constraints of the study.Nasopharynx: Visualized nasopharyngeal soft tissues are symmetric. The nasopharyngeal airway is patent.Temporal Bones: Mastoid air cells and middle ear cavities are grossly clear.Skull Base: No evidence of bony destruction.Facial Soft Tissues: Normal.Orbits: Grossly normal.IMPRESSION:No acute intracranial process. No hemorrhage.Small mucous retention cyst in the left maxillary sinus.Appliance Repair Technician: KAYLA Transcribe Date/Time: May 06 2018 2:43PDictated by : MALISSA THACKER MDThis examination was interpreted and the report reviewed and electronically signed by: LOYDA TAYLOR MD on May 06 2018 3:19PM EST Normal [facility] CT STEREO SINUSon 05-06-2018 Eosinophils Auto #/vol (Bld) * * *Final Report* * *DATE OF EXAM: May 06 2018 1:46PM [facility] 2489 - CT STEREO SINUS / REASON: sinus and brain * * * * Physician Interpretation * * * * EXAMINATION: CT BRAIN WO CONTRAST, CT STEREO SINUSCLINICAL HISTORY: Right-sided facial numbness and headaches abnormal gait.TECHNIQUE: Serial axial images without IV contrast were obtained from the vertex to the foramen magnum. Additionally, Spiral high resolution unenhanced images were obtained through the paranasal sinuses with sagittal and coronal reconstructions and bone and soft tissue algorithms.MQ: CTBWO_3CT Dose-Length Product (DLP): 795 mGy*cmCT Dose Reduction Employed: No dose reduction techniques were requiredCOMPARISON: None.BRAIN RESULT:Post-operative change: None.Acute change: No evidence of an acute infarct or other acute parenchymal process.Hemorrhage: No evidence of acute intracranial hemorrhage.Mass Lesion / Mass Effect: There is no evidence of an intracranial mass or extraaxial fluid collection. No significant mass effect.Chronic change: None apparent.Parenchyma: There is no significant volume loss. The brain parenchyma is otherwise within normal limits for age.Ventricles: The ventricles are within normal limits of size and configuration for age.SINUS RESULT:Post-Surgical Findings: NoneSinus Chambers: Small mucosal retention cyst in the left maxillary sinus.Nasal Cavities: Visualized nasal cavities are patent. Soft tissue prominence in the area between the longus colli muscles is likely a Thornwaldt cyst.Developmental Anomalies: NoneOstiomeatal Complex: Patent within the constraints of the study.Nasopharynx: Visualized nasopharyngeal soft tissues are symmetric. The nasopharyngeal airway is patent.Temporal Bones: Mastoid air cells and middle ear cavities are grossly clear.Skull Base: No evidence of bony destruction.Facial Soft Tissues: Normal.Orbits: Grossly normal.IMPRESSION:No acute intracranial process. No hemorrhage.Small mucous retention cyst in the left maxillary sinus.Appliance Repair Technician: KAYLA Transcribe Date/Time: May 06 2018 2:43PDictated by : MALISSA THACKER MDThichapo examination was interpreted and the report reviewed and electronically signed by: LOYDA TAYLOR MD on May 06 2018 3:19PM EST Normal [facility] PROGRESSon 05-06-2018 Protein mass conc HNO ID: [id number]: Zakia Hazel CtService: (none)Author Type: (none)Type: Progress NotesFiled: 05/06/2018 1:46 PMNote Text: Radiology Service Progress NotePATIENT NAME: Mahamed GarciaMRN: [id number] OF SERVICE: May 06, 2018TIME: 1:41 PMPATIENT IDENTITY VERIFICATION COMPLETED USING TWO (2) METHODS: Patientconfirmed name verbally and Date of .PATIENT GENDER DATA: Female. status: : NoBreastfeeding status: NO.PATIENT RELEVANT IMPLANT DATA REVIEWED: Not ApplicableRADIOLOGY DEPARTMENT: CT; Exam(s) Completed: Brain and SinusPERIPHERAL IV DATA: Not applicableSIGNED BY: Zakia Hazel CtOct2017 1:41 PM Normal [facility] Encounters Encounter Date Encounter Type Care Provider Facility Start: 07-14-2024 End: 07-14-2024 ambulatory KAYLA العراقي DO Facility:[facility] Start: 07-14-2024 End: 07-14-2024 Patient encounter procedure KAYLA العراقي DO [facility] Start: 06-13-2024 End: 06-13-2024 Emergency department patient visit Kayla العراقي Facility:[facility] Start: 12-31-2023 End: 12-31-2023 Patient encounter procedure KAYLA BLACKWELLIN DO [facility] Start: 03-27-2023 End: 03-27-2023 Patient encounter procedure KAYLA العراقي DO [facility] Start: 07-08-2022 End: 07-09-2022 ambulatory KAYLA العراقي DO Facility:[facility] Start: 07-08-2022 End: 07-08-2022 Patient encounter procedure KAYLA العراقي DO [facility] Start: 07-03-2022 End: 07-04-2022 ambulatory KAYLA العراقي DO Facility:[facility] Start: 07-03-2022 End: 07-03-2022 Patient encounter procedure KAYLA BLACKWELLIN DO [facility] Start: 04-11-2022 End: 04-12-2022 ambulatory KAYLA العراقي DO Facility:[facility] Start: 04-11-2022 End: 04-11-2022 Patient encounter procedure KAYLA BLACKWELLIN DO [facility] Start: 05-06-2018 End: 05-06-2018 Patient encounter KAYLA TIMMONS [facility] [place] Procedures Date Procedure Procedure Detail Performing Clinician Start: 08-03-1999 Loop electrosurgical excision procedure KAYLA BLACKWELLIN DO Comment on above: Dr. Piña Start: 08-03-1979 Tip of finger of right hand KAYLA العراقي DO Comment on above: 5th finger s/p traum a--Dr. Veras Immunizations Immunization Date Immunization Notes [facility]2019 influenza virus vacc ine, unspecified formulation KAYLA BLACKWELLIN DO [facility] 06-30-2016 influenza virus vacc ine, unspecified formulation KAYLA MARINOMILLIN DO [facility] 06-12-2016 influenza virus vacc ine, unspecified formulation KAYLA BLACKWELLIN DO [facility] 02-12-2009 tetanus and diphther ia toxoids, adsorbed, preservative free, for adult use (5 Lf of tetanus toxoid and 2 Lf of diphtheria toxoid) [facility] Payers Date Payer Category Payer Private Health Insurance [id number] 2022 Self-pay 1961 Unknown [id number] [id number] 1960 Unknown [id number]. [id number] 1960 Unknown [id number] .16.8 [id number] 1960 Unknown [id number] .16.8 [id number] Unknown [id number] 2.16.8 [id number] Social History Date Type Detail Facility Start: 01-20-2019 Tobacco smoking status Ex-smoker (fi nding) [facility] Sex Assigned At Sex [facility] Clinical Note 12-31-2023 Note Date & Type Note Facility 12-31-2023 Note ORIGINAL EXAMINATION: THREE XRAY VIEWS OF THE LEFT KNEE12/31/2023 10:03 am COMPARISON: Left knee radiograph 04/20/2015 HISTORY: ORDERING SYSTEM PROVIDED HISTORY: Reason for Exam: left knee pain since September, strained after slipping on ice meniscal tear 12 years ago FINDINGS: No acute fracture or dislocation. Bony alignment is within normal limits. Mild tricompartmental degenerative changes with joint space narrowing, and osteophyte formation. Small patellar enthesophytes. Small suprapatellar joint effusion. Vascular phleboliths. Partially visualized intraosseous membrane ossification. The soft tissues are otherwise unremarkable. IMPRESSION: No acute bony abnormality. Mild degenerative changes Small suprapatellar joint effusion. I have personally reviewed the images of this examination and agree with the resident's findings and interpretation. Interpreted by: Magan Arrieta MD Preliminary Report By: Pan Blanco Electronically signed By Magan Arrieta MD Dictated Date: 12/31/2023 10:57:16 AM Prelim Date: 12/31/2023 11:15:43 AM Sign Date: 12/31/2023 11:15:43 AM [facility]-27-2023 Note Date & Type Note Facility 03-27-2023 Note ORIGINAL EXAMINATION: MRI OF THE BRAIN WITHOUT CONTRAST 03/27/2023 10:36 am TECHNIQUE: Multiplanar multisequence MRI of the brain was performed without the administration of intravenous contrast. COMPARISON: None. HISTORY: ORDERING SYSTEM PROVIDED HISTORY: Reason for Exam: headache, tremor, shuffling gait FINDINGS: INTRACRANIAL STRUCTURES/VENTRICLES: There is no acute infarct. No mass effect or midline shift. No evidence of an acute intracranial hemorrhage. The ventricles and sulci are normal in size and configuration. The sellar/suprasellar regions appear unremarkable. Scattered periventricular and subcortical white matter T2/FLAIR hyperintensities which are nonspecific, although could be sequelae of chronic small vessel ischemic disease. The normal signal voids within the major intracranial vessels appear maintained. ORBITS: The visualized portion of the orbits demonstrate no acute abnormality. SINUSES: The visualized paranasal sinuses and mastoid air cells demonstrate no acute abnormality. Nonspecific mucosal thickening in the right sphenoid sinus. BONES/SOFT TISSUES: The bone marrow signal intensity appears normal. The soft tissues demonstrate no acute abnormality. IMPRESSION: No acute findings. Interpreted by: Lopez [place] Preliminary Report By: Lopez [place] Electronically signed By Lopez [place] Dictated Date: 03/27/2023 1:31:13 PM Prelim Date: 03/27/2023 1:34:00 PM Sign Date: 03/27/2023 1:34:00 PM Ordering Provider: KAYLA العراقي [facility] Evaluation + Plan note Radiology Note Date & Type Note Facility Evaluation + Plan note Future Appointments Appointment Date:04/22/2022 02:00:00 PM Scheduled Provider:KAYLA العراقي DO Location:[facility] Appointment Type:PC Wellness Annual Diagnostic Tests PendingHepatitis C Antibody IgG 04/11/22Aspartate Aminotransferase 04/11/22Lipid Profile 04/11/22A1C Hemoglobin 04/11/22ALT / SGPT 04/11/22Basic Metabolic Panel 04/11/22Complete Blood Count 04/11/22 Future Scheduled TestsCT Sinus 08/22/21 [facility] Evaluation + Plan note LaboratoryRadiology Note Date & Type Note Facility Evaluation + Plan note Future Appointments Appointment Date:07/08/2022 11:00:00 AM Scheduled Provider: Location:[facility] Appointment Type:CT Sinus Appointment Date:04/30/2023 10:40:00 AM Scheduled Provider:KAYLA العراقي DO Location:[facility] Appointment Type:PC Wellness Annual Future Scheduled [id number] Hemoglobin 04/22/23Complete Blood Count 04/22/23Lipid Profile 04/22/23Vitamin D Level 04/22/23Complete Metabolic Panel 04/22/23CT Sinus 07/08/22 [facility] Evaluation + Plan note Laboratory Note Date & Type Note Facility Evaluation + Plan note Future Appointments Appointment Date:04/30/2023 10:40:00 AM Scheduled Provider:KAYLA العراقي DO Location:[facility] Appointment Type:PC Wellness Annual Future Scheduled [id number] Hemoglobin 04/22/23Complete Blood Count 04/22/23Lipid Profile 04/22/23Vitamin D Level 04/22/23Complete Metabolic Panel 04/22/23 [facility] Evaluation + Plan note LaboratoryRadiology Note Date & Type Note Facility Evaluation + Plan note Future Appointments Appointment Date:05/05/2024 10:40:00 AM Scheduled Provider:KAYLA العراقي DO Location: [facility] Appointment Type:PC Wellness Annual w/Labs Future Scheduled [id number] Hemoglobin 04/22/23Complete Blood Count 04/22/23Lipid Profile 04/22/23Vitamin D Level 04/22/23Complete Metabolic Panel 04/22/23MA Mammo Screening Bilateral w/ Charlie 04/30/23 [facility] Evaluation + Plan note Laboratory Note Date & Type Note Facility Evaluation + Plan note Future Appointments Appointment Date:08/22/2024 09:40:00 AM Scheduled Provider:KAYLA العراقي DO Location:[facility] Appointment Type:PC OV Follow Up Future Scheduled [id number] Hemoglobin 04/21/25Complete Blood Count 04/21/25Lipid Profile 04/21/25Vitamin D Level 04/28/24Complete Metabolic Panel 04/21/25 [facility] Hospital course Narrative Note Date & Type Note Facility Hospital course Narrative No data available for this section [facility] Hospital Discharge instructions Note Date & Type Note Facility Hospital Discharge instructions No data available for this section [facility] Progress note Note Date & Type Note Facility Progress note No data available for this section [facility] Summary Purpose Family History No Family History Records FoundNo Family History Records Found No data available for this section No data available for this section No Family History Records Found No data available for this section No Family History Records Found Advance Directives No Advanced Directives Records FoundNo Advanced Directives Records FoundNo Advanced Directives Records FoundNo Advanced Directives Records Found Additional Source Comments INFORMATION SOURCE (unrecogn ized section and content) DATE CREATED AUTHOR 06/03/2018 [facility] DATE CREATED AUTHOR AUTHOR'S ORGANIZ ATION 01/09/2023 [facility] ([place]) DATE CREATED AUTHOR AUTHOR'S ORGANIZ ATION 07/15/2024 [facility] DATE CREATED AUTHOR AUTHOR'S ORGANIZ ATION 07/24/2024 [facility] Care Team (unrecognized sect ion and content) Care Team Personnel Name: KAYLA العراقي DO Position: P4 Physician - Primary Care Member Role: Primary Care Physician Address: Address: [address] [place] [phone] [place] Care Team Related Persons Name: MARLON GARCIA Address: Home [address] [place] [phone] Care Team Personnel Name: KAYLA العراقي DO Position: P4 Physician - Primary Care Member Role: Primary Care Physician Address: Address: [address] [place] [address]- Care Team Related Persons Name: MARLON GARCIA Address: Home [address] [place] [phone] [place] Care Team Personnel Name: KAYLA العراقي DO Position: P4 Physician - Primary Care Member Role: Primary Care Physician Address: Address: [address] [place] [address]- Care Team Related Persons Name: MARLON GARCIA Address: Home [address] [place] [phone] Patient Care team informatio n (unrecognized section and content) Care Team Personnel Name: KAYLA العراقي DO Position: P4 Physician - Primary Care Member Role: Primary Care Physician Address: Address: [address] [place] [phone]- [place] Care Team Related Persons Name: MARLON GARCIA Address: Home [address] [place] [phone] [place] Care Team Personnel Name: KAYLA العراقي DO Position: P4 Physician - Primary Care Member Role: Primary Care Physician Address: Address: [address] [place] [phone]- [place] Name: SHANIQUE DEGROOT MD Member Role: Rn Triage Address: Address: [address] [place] [phone] Care Team Related Persons Name: MARLON GARCIA Address: Home [address] [place] [phone] Care Team Personnel Name: JOSI KAYLA Position: P4 Physician - Primary Care Member Role: Primary Care Physician Address: Address: [address] [place], [place] [phone] Name: SHANIQUE DEGROOT MD Member Role: Rn Triage Address: Address: [address] [place] [phone] [place] Care Team Related Persons Name: MARLON GARCIA Address: Home [address] [place] [phone] FOR RECORDS PERTAINING TO PATIENTS WHO ARE OR HAVE BEEN ENROLLED IN A CHEMICAL DEPENDENCY/SUBSTANCEABUSE PROGRAM, SOME INFORMATION MAY BE OMITTED. This clinical summary was aggregated from multiple sources. Caution should be exercised in using it in the provision of clinical care. This summary normalizes information from multiple sources, and as a consequence, information in this document may materially change the coding, format and clinical context of patient data. In addition, data may be omitted in some cases. CLINICAL DECISIONS SHOULD BE BASED ON THE PRIMARY CLINICAL RECORDS. [facility] [email or web address] provides no warranty or guarantee of the accuracy or completeness of information in this document.
[2025-03-30 22:15] LABS: Hematocrit 40.9 % (37-47); Hemoglobin 13.7 g/dL (12.0-15.0); Immature Granulocytes Count 0.030 X10^3/uL (0.0-0.0); Mean Corp Hgb Conc 33.5 g/dL (32-36); Mean Corpuscular Volume 89.5 fL (81-99); Mean Platelet Vol. 8.7 fl (6.2-12.0); NRBC Flagged by Analyzer 0 % (0-5); Platelet Count 357 K/mm3 (150-450); RBC Distribution Width CV 13.2 % (11.6-14.6); RBC Distribution Width SD 43.5 fl (35.1-43.9); Red Blood Count 4.57 M/mm3 (4.2-5.4); White Blood Count 9.8 K/mm3 (4.4-11.0)
--- NOTE | 2025-03-30 22:15 | EDS_ITS ---
HPI History of Present Illness Chief Complaint: Chest Pain Narrative Narrative: 64-year-old female past medical history of hypertension presents with left-sided chest pain and squeezing that began at around 8 PM, approximately 2 hours ago. She states she had just gotten home. She felt some tightness and squeezing in her chest that became relatively severe. She denies any nausea or vomiting, no shortness of breath or diaphoresis but does state that when she leans forward sometimes it gets worse. May radiate slightly upward in her chest. She denies any leg swelling. No DVT or PE risk factors. No tearing sensation of the back. There may be a slight pleuritic component to it. It is improving, however. [facility] Medical History Hypertension Glaucoma Fingertip amputation Back pain Diarrhea Migraines Hay fever Hemorrhoids Home Medications ?Medication ?Instructions ?Recorded ?Last Taken ?Type fexofenadine-pseudoephedrine ER 1 tab PO QAM 08/29/17 Unknown History 180 mg-240 mg tablet,ext.release 24 hr (Kena-D 24 Hour) ibuprofen 100 mg tablet (Advil) PO 08/29/17 Unknown Hi story amlodipine 5 mg tablet 5 mg PO DAILY 06/13/24 Unkno wn History latanoprost 0.005 % eye drops 1 drp ophthalmic (eye) D AILY 03/30/25 Unknown History losartan 50 mg tablet 50 mg PO DAILY 03/30/25 Unkn own History Allergy/AdvReac Type Severity Reaction Status Date / Time Environmental Allergies: Allergy Other Verified 03/30/25 21:48 Uncoded levofloxacin (From Levaquin) Allergy Other Verified 03/30/25 21:48 Family History Father Myocardial infarction Hypertension Mother Diabetes Hypertension Social History Smoking Status: Never smoker alcohol intake: never ROS ROS ED ROS Narrative Review of systems positive for left-sided chest pain. No fevers or chills, no cough, no nausea or vomiting, no diaphoresis or shortness of breath. Slight pleuritic pain and also worsened with leaning forward, however overall improving. No leg swelling. No exertional component. EXAM Physical Exam Narrative Exam Narrative: Afebrile. Vital signs noted. Nontoxic-appearing. Cardiovascular examination feels a regular rate and rhythm. Lungs are clear to auscultation bilaterally. Abdomen is soft and nontender with positive bowel sounds. No guarding or rebound. Neurological examination is nonfocal, nonlateralizing. No appreciable pitting pedal edema bilaterally. Const Vital Signs: 03/30/25 21:45 03/30/25 21:52 03/30/25 21:52 Temperature 98.4 F Temperature Source Temporal Pulse Rate 72 Respiratory Rate 16 Respiratory Effort Normal Respiratory Pattern Normal Blood Pressure 177/91 H 157/93 H Blood Pressure Mean 119 114 Pulse Ox 99 Oxygen Delivery Method Room Air 03/30/25 21:53 03/30/25 21:53 03/30/25 22:00 Temperature Temperature Source Pulse Rate 69 70 Respiratory Rate 19 H 12 Respiratory Effort Respiratory Pattern Blood Pressure 157/93 H 166/89 H Blood Pressure Mean 114 112 Pulse Ox 99 100 Oxygen Delivery Method Room Air 03/30/25 22:00 03/30/25 22:07 03/30/25 22:15 Temperature Temperature Source Pulse Rate 66 68 Respiratory Rate 11 L 8 L Respiratory Effort Respiratory Pattern Blood Pressure 166/89 H Blood Pressure Mean 112 Pulse Ox 99 98 Oxygen Delivery Method Room Air 03/30/25 22:19 03/30/25 22:30 03/30/25 22:45 Temperature Temperature Source Pulse Rate 70 63 68 Respiratory Rate 14 18 Respiratory Effort Respiratory Pattern Blood Pressure 166/89 H 137/83 H Blood Pressure Mean 101 Pulse Ox 95 98 Oxygen Delivery Method 03/30/25 23:00 03/30/25 23:00 03/30/25 23:15 Temperature Temperature Source Pulse Rate 66 60 64 Respiratory Rate 14 13 14 Respiratory Effort Respiratory Pattern Blood Pressure 146/73 H 146/73 H Blood Pressure Mean 97 93 Pulse Ox 98 97 99 Oxygen Delivery Method Room Air 03/30/25 23:30 03/30/25 23:45 03/31/25 00:00 Temperature Temperature Source Pulse Rate 59 L 65 70 Respiratory Rate 14 13 19 H Respiratory Effort Respiratory Pattern Blood Pressure 128/77 H 147/80 H Blood Pressure Mean 93 99 Pulse Ox 95 96 97 Oxygen Delivery Method MDM MDM MDM Narrative Medical decision making narrative: The differential diagnosis includes but not limited to acute coronary syndrome versus pulmonary embolism versus Prinzmetal angina versus pneumothorax versus pneumonia. History and physical does not support the latter 2 diagnoses. I have low clinical suspicion for aortic dissection as she is not having any tearing back pain and she has equal radial pulses. EKG was obtained and interpreted by myself independently as normal sinus rhythm at 70 bpm without ectopy or acute ST changes. No STEMI. I reviewed her laboratory work and she has normal white count of 9.8 with hemoglobin 13.7, hematocrit 40.9, platelet count normal at 357. D-dimer is negative at 0.39. I do not feel she requires CTA. She had a negative D-dimer when compared to prior labs as well. BMP is grossly unremarkable except for creatinine low at 0.63. Initial high-sensitivity troponin is less than 6. Chest x-ray 2 views interpreted by myself independently shows no acute process. I reviewed the radiology report which confirms my independent interpretation. Upon repeat examination, she states her pain is improved. Her blood pressure has come down. Additionally, she states that the pain was radiating under her rib. She may have had more of a pinched nerve as she states it was worse when she leaned forward and directly under her left breast. She will be given Toradol for analgesia here. As long as her repeat troponin at 2 hours is negative with an acceptable delta, I do feel that she can be discharged to follow-up. She will take her blood pressure more often and follow-up with her primary care provider. I did review return instructions with her as well. Patient will be signed out to the overnight physician to check the second troponin, and make final disposition on the patient. Discharge anticipated. She is in stable condition currently. History & Record Review Discussion w/independent historian: Patient Additional record(s) reviewed:: Prior labs (Prior negative D-dimer) Lab Data Attestation: I reviewed the patient's lab results. Labs: Laboratory Results - last 24 hr 03/30/25 21:56 WBC 9.8 RBC 4.57 Hgb 13.7 Hct 40.9 MCV 89.5 MCH 30.0 MCHC 33.5 RDW Std Deviation 43.5 RDW Coeff of Ericka 13.2 Plt Count 357 MPV 8.7 Immature Gran % (Auto) 0.300 Neut % (Auto) 62.0 Lymph % (Auto) 24.5 [place] % (Auto) 9.3 Eos % (Auto) 3.2 Baso % (Auto) 0.7 Absolute Neuts (auto) 6.1 Absolute Lymphs (auto) 2.39 Nucleated RBC % 0 D-Dimer Quant (PE/DVT) 0.39 Sodium 138 Potassium 3.6 Chloride 103 Carbon Dioxide 23.2 Anion Gap 12 BUN 16 Creatinine 0.63 L Estim Creat Clear Calc 73.08 Est GFR (MDRD) Non-Af 98 BUN/Creatinine Ratio 24.5 H Glucose 97 Calcium 9.0 Troponin T High Sens < 6 Radiography Diagnostic Testing: Clinical Impression(s) from Imaging Studies Chest X-Ray 03/30/25 22:20 IMPRESSION: NO ACUTE FINDINGS. Reading Location: [facility] Discharge Plan Triage Chief Complaint: Chest Pain ED Provider: Toby Cochran Dx/Rx/DC Orders Clinical Impression: Chest pain, Squeezing chest pain, Hypertension Instructions: ED Chest Pain, Uncertain Cause, ED High Blood Pressure Hypertension Prescriptions: No Action ibuprofen [Advil] 100 mg tablet PO fexofenadine-pseudoephedrine [Kena-D 24 Hour] 180-240 mg tablet extended release 24 hr 1 tab PO QAM amlodipine 5 mg tablet 5 mg PO DAILY losartan 50 mg tablet 50 mg PO DAILY latanoprost 0.005 % drops 1 drp ophthalmic (eye) DAILY Primary Care Provider: Souleymane Calle Referrals: Souleymane Calle DO [Primary Care Provider] - 3-5 Days Activity Restrictions/Additional Instructions: Return to the emergency department with increased chest pain, new or worsening symptoms. Keep track of your blood pressure and log it to discuss how it is running with your primary care provider. You may need an increase in her antihypertensive medication. Print Language: Occitan Disposition Disposition: Home, Self Care
[2025-03-30] MEDS: Nitroglycerin SL (ED/IMG/CATH) 0.4 MG TABLET SL (22:19)
--- NOTE | 2025-03-30 22:20 | RAD_ITS ---
PROCEDURE: CHEST PA AND LATERAL 03/30/2025 REASON FOR EXAM: CHEST PAIN TECHNIQUE: CHEST PA AND LATERAL COMPARISON: None available. FINDINGS: Hardware: None. Heart: The heart size is normal. Mediastinum: The mediastinal contour is unremarkable. Lungs: The lungs are clear. Bones: The bones are unremarkable. RAD/Chest PA and Lateral IMPRESSION: NO ACUTE FINDINGS. Reading Location: [facility]
[2025-03-30 22:41] LABS: D-Dimer Quantitative (DVT/PE) 0.39 FEU/ug/m (0.27-0.49)
[2025-03-30 23:26] LABS: Anion Gap 12 (5-15); BUN 16 mg/dL (4-19); BUN/Creat Ratio 24.5 RATIO (10-20); Calcium,Total 9.0 mg/dL (7.6-11.0); Carbon Dioxide 23.2 mmol/L (21.0-32.0); Chloride 103 mmol/L (98-108); Estimated Creatinine Clearance 73.08 ml/min (50-250); Glucose 97 mg/dL (70-99); Potassium 3.6 mmol/L (3.3-5.1); Troponin T High Sensitivity < 6 ng/L (<=14)
[2025-03-31] VITALS: BP 147/80; PULSE 70; RESP 19; O2SAT 97
[2025-03-31 00:36] LABS: Troponin T High Sens 2 HR 7 ng/L (<=14)
[2025-03-31 00:52] VITALS: BP 138/79; PULSE 80; RESP 18; TEMP 36.6; O2SAT 98
== END 2025-03-31 00:55 | disposition home or self-care (01) ==
PROVIDERS: Emergency Medicine; Emergency Provider Emergency Medicine; PCP Student in an Organized Health Care Education/Training Program; Visit Provider Emergency Medicine
DX: R07.9 Chest pain, unspecified (principal); I10 Essential (primary) hypertension; Z79.899 Other long term (current) drug therapy
CPT/HCPCS: 71046; 80048; 84484; 85025; 85379; 93005; 99285; A4216